=== PATIENT | female | born 1940 | race Caucasian/White ===

== ENCOUNTER 2016-09-23 09:54 | Outpatient (CLI) | payer MEDICARE, OTHER | END 2016-09-23 09:55 | disposition home or self-care (01) | DX: G47.33 Obstructive sleep apnea (adult) (pediatric) (principal) | CPT/HCPCS: 99213; G0463 ==

== ENCOUNTER 2016-12-23 10:24 | Outpatient (CLI) | payer MEDICARE, OTHER | END 2016-12-23 10:25 | disposition home or self-care (01) | LOC: SC 10:24 | PROVIDERS: ATTEND Nurse Practitioner Family | DX: G47.33 Obstructive sleep apnea (adult) (pediatric) (principal) | CPT/HCPCS: 99213; G0463; 99212 ==

== ENCOUNTER 2017-02-07 19:11 | Outpatient (CLI) | payer MEDICARE, OTHER | END 2017-02-07 19:12 | disposition home or self-care (01) | LOC: SC 19:11 | PROVIDERS: ATTEND Internal Medicine Pulmonary Disease | DX: G47.33 Obstructive sleep apnea (adult) (pediatric) (principal); R09.02 Hypoxemia | CPT/HCPCS: 95810 ==

== ENCOUNTER 2017-03-08 14:21 | Outpatient (CLI) | payer MEDICARE, OTHER | END 2017-03-08 14:22 | disposition home or self-care (01) | LOC: SC 14:21 | PROVIDERS: ATTEND Nurse Practitioner Family | DX: G47.33 Obstructive sleep apnea (adult) (pediatric) (principal); R09.02 Hypoxemia | CPT/HCPCS: 99214; G0463; 99212 ==

== ENCOUNTER 2017-04-05 13:14 | Outpatient (CLI) | payer MEDICARE, OTHER | END 2017-04-05 13:15 | disposition home or self-care (01) | LOC: SC 13:14 | PROVIDERS: ATTEND Nurse Practitioner Family | DX: G47.33 Obstructive sleep apnea (adult) (pediatric) (principal); G47.00 Insomnia, unspecified | CPT/HCPCS: 99214; G0463; 99212 ==

== ENCOUNTER 2017-05-11 11:31 | Outpatient (CLI) | payer MEDICARE, OTHER | END 2017-05-11 11:32 | disposition home or self-care (01) | LOC: DI 11:31 | PROVIDERS: ATTEND Registered Nurse | DX: I48.91 Unspecified atrial fibrillation (principal); R01.1 Cardiac murmur, unspecified; I08.1 Rheumatic disorders of both mitral and tricuspid valves | CPT/HCPCS: 93306 ==

== ENCOUNTER 2017-05-16 11:24 | Outpatient (CLI) | payer MEDICARE, OTHER | END 2017-05-16 11:25 | disposition home or self-care (01) | LOC: SC 11:24 | PROVIDERS: ATTEND Nurse Practitioner Family | DX: G47.33 Obstructive sleep apnea (adult) (pediatric) (principal) | CPT/HCPCS: 99214; G0463; 99212 ==

== ENCOUNTER 2018-04-19 10:12 | Outpatient (CLI) | payer MEDICARE, OTHER | END 2018-04-19 10:13 | disposition home or self-care (01) | LOC: SC 10:12 | PROVIDERS: ATTEND Nurse Practitioner Family | DX: G47.33 Obstructive sleep apnea (adult) (pediatric) (principal) | CPT/HCPCS: 99213; G0463; 99212 ==

== ENCOUNTER 2018-12-18 09:31 | Outpatient (CLI) | payer MEDICARE, OTHER ==
[2018-12-18 18:14] LABS: ABSOLUTE RETICS # AUTO 0.135 10^6/uL (0.020-0.110); BASOPHILS # (AUTO) 0.1 10^3/uL (0.0-0.1); BASOPHILS % (AUTO) 1.3 %; EOSINOPHILS # (AUTO) 0.2 10^3/uL (0.0-0.7); HGB - HEMOGLOBIN 11.1 g/dL (12.0-16.0); LYMPHOCYTES # (AUTO) 2.2 10^3/uL (1.5-3.5); LYMPHOCYTES % (AUTO) 39.7 %; MEAN CORPUSCULAR HEMOGLOBIN 33.7 pg (27.0-31.0); MEAN CORPUSCULAR HGB CONC 33.8 g/dL (32.0-36.0); MEAN CORPUSCULAR VOLUME 99.7 fL (81.0-99.0); MEAN PLATELET VOLUME 9.6 fL (7.9-10.8); MONOCYTES # (AUTO) 0.6 10^3/uL (0.0-1.0); MONOCYTES % (AUTO) 11.5 %; NEUTROPHILS # (AUTO) 2.4 10^3/uL (1.5-6.6); NEUTROPHILS % (AUTO) 43.1 %; PLT - PLATELET COUNT 305 10^3/uL (130-450); RED BLOOD COUNT 3.29 10^6/uL (4.20-5.40); RED CELL DISTRIBUTION WIDTH 14.2 % (12.0-15.0)
[2018-12-18 18:17] LABS: WHITE BLOOD COUNT 5.5 x10^3/uL (4.8-10.8)
[2018-12-18 19:16] LABS: ALBUMIN 4.4 g/dL (3.2-5.5); ALBUMIN/GLOBULIN RATIO 1.7 (1.0-2.2); BILIRUBIN,TOTAL 1.8 mg/dL (0.2-1.0); CALCIUM 9.7 mg/dL (8.5-10.3); CREATININE 0.4 mg/dL (0.4-1.0)
== END 2018-12-18 09:32 | disposition home or self-care (01) ==
LOC: LAB.S 09:31
PROVIDERS: ATTEND Internal Medicine Hematology & Oncology
DX: D64.9 Anemia, unspecified (principal); I10 Essential (primary) hypertension; R60.9 Edema, unspecified
CPT/HCPCS: 36415; 80053; 83010; 83615; 83880; 84443; 85025; 85044

== ENCOUNTER 2019-01-29 08:06 | Outpatient (CLI) | payer MEDICARE, OTHER | END 2019-01-29 08:07 | disposition home or self-care (01) | LOC: LAB.S 08:06 | PROVIDERS: ATTEND Physician Assistant | DX: R60.0 Localized edema (principal) | CPT/HCPCS: 36415; 83880 ==

== ENCOUNTER 2019-06-19 08:00 | Outpatient (CLI) | payer MEDICARE, OTHER ==
[2019-06-19 11:27] LABS: ALBUMIN 4.4 g/dL (3.2-5.5); ALBUMIN/GLOBULIN RATIO 1.8 (1.0-2.2); BILIRUBIN,TOTAL 1.5 mg/dL (0.2-1.0); CALCIUM 9.1 mg/dL (8.5-10.3); CREATININE 0.3 mg/dL (0.4-1.0); TOTAL PROTEIN 6.9 g/dL (6.7-8.2)
[2019-06-19 11:40] LABS: ABSOLUTE RETICS # AUTO 0.133 10^6/uL (0.020-0.110); BASOPHILS # (AUTO) 0.1 10^3/uL (0.0-0.1); BASOPHILS % (AUTO) 1.5 %; EOSINOPHILS # (AUTO) 0.2 10^3/uL (0.0-0.7); EOSINOPHILS % (AUTO) 4.3 %; HGB - HEMOGLOBIN 11.2 g/dL (12.0-16.0); LYMPHOCYTES # (AUTO) 1.9 10^3/uL (1.5-3.5); LYMPHOCYTES % (AUTO) 36.2 %; MEAN CORPUSCULAR HEMOGLOBIN 34.9 pg (27.0-31.0); MEAN CORPUSCULAR HGB CONC 35.3 g/dL (32.0-36.0); MEAN CORPUSCULAR VOLUME 98.8 fL (81.0-99.0); MEAN PLATELET VOLUME 9.5 fL (7.9-10.8); MONOCYTES # (AUTO) 0.5 10^3/uL (0.0-1.0); MONOCYTES % (AUTO) 10.1 %; NEUTROPHILS # (AUTO) 2.5 10^3/uL (1.5-6.6); NEUTROPHILS % (AUTO) 47.7 %; PLT - PLATELET COUNT 337 10^3/uL (130-450); RED BLOOD COUNT 3.21 10^6/uL (4.20-5.40); RED CELL DISTRIBUTION WIDTH 13.8 % (12.0-15.0); WHITE BLOOD COUNT 5.3 x10^3/uL (4.8-10.8)
[2019-06-19 12:04] LABS: PLATELET ESTIMATE, MANUAL NORMAL (130-450,000) (NORMAL); PLATELET MORPHOLOGY NORMAL APPEARANCE (NORMAL)
== END 2019-06-19 23:59 | disposition home or self-care (01) ==
LOC: LAB.S 08:00
PROVIDERS: ATTEND Internal Medicine Hematology & Oncology
DX: D59.1 Other autoimmune hemolytic anemias (principal); D64.9 Anemia, unspecified
CPT/HCPCS: 36415; 80053; 83010; 85025; 85045

== ENCOUNTER 2019-11-27 07:38 | Outpatient (CLI) | payer MEDICARE, OTHER ==
[2019-11-27 15:43] LABS: ALBUMIN 4.3 g/dL (3.2-5.5); ALBUMIN/GLOBULIN RATIO 1.7 (1.0-2.2); BILIRUBIN,TOTAL 1.3 mg/dL (0.2-1.0); CALCIUM 9.4 mg/dL (8.5-10.3); CREATININE 0.4 mg/dL (0.4-1.0); TOTAL PROTEIN 6.9 g/dL (6.7-8.2)
[2019-11-27 16:34] LABS: ABSOLUTE RETICS # AUTO 0.113 10^6/uL (0.020-0.110); BASOPHILS # (AUTO) 0.1 10^3/uL (0.0-0.1); BASOPHILS % (AUTO) 1.3 %; EOSINOPHILS # (AUTO) 0.2 10^3/uL (0.0-0.7); EOSINOPHILS % (AUTO) 3.8 %; HGB - HEMOGLOBIN 10.9 g/dL (12.0-16.0); LYMPHOCYTES # (AUTO) 2.3 10^3/uL (1.5-3.5); LYMPHOCYTES % (AUTO) 42.6 %; MEAN CORPUSCULAR HEMOGLOBIN 31.1 pg (27.0-31.0); MEAN CORPUSCULAR HGB CONC 33.1 g/dL (32.0-36.0); MEAN PLATELET VOLUME 10.4 fL (7.9-10.8); MONOCYTES # (AUTO) 0.6 10^3/uL (0.0-1.0); MONOCYTES % (AUTO) 10.8 %; NEUTROPHILS # (AUTO) 2.2 10^3/uL (1.5-6.6); NEUTROPHILS % (AUTO) 41.1 %; PLT - PLATELET COUNT 336 10^3/uL (130-450); RED CELL DISTRIBUTION WIDTH 14.3 % (12.0-15.0); WHITE BLOOD COUNT 5.3 x10^3/uL (4.8-10.8)
== END 2019-11-27 07:39 | disposition home or self-care (01) ==
LOC: LAB.S 07:38
PROVIDERS: ATTEND Internal Medicine Hematology & Oncology
DX: D59.1 Other autoimmune hemolytic anemias (principal)
CPT/HCPCS: 36415; 80053; 83615; 85025; 85045

== ENCOUNTER 2020-05-28 07:21 | Outpatient (CLI) | payer MEDICARE, OTHER ==
[2020-05-28 09:04] LABS: ABSOLUTE RETICS # AUTO 0.135 10^6/uL (0.020-0.110); BASOPHILS # (AUTO) 0.1 10^3/uL (0.0-0.1); BASOPHILS % (AUTO) 0.9 %; EOSINOPHILS # (AUTO) 0.2 10^3/uL (0.0-0.7); EOSINOPHILS % (AUTO) 4.3 %; LYMPHOCYTES # (AUTO) 1.9 10^3/uL (1.5-3.5); MEAN CORPUSCULAR HEMOGLOBIN 35.7 pg (27.0-31.0); MEAN CORPUSCULAR HGB CONC 36.8 g/dL (32.0-36.0); MEAN CORPUSCULAR VOLUME 97.1 fL (81.0-99.0); MEAN PLATELET VOLUME 8.8 fL (7.9-10.8); MONOCYTES # (AUTO) 0.7 10^3/uL (0.0-1.0); MONOCYTES % (AUTO) 12.2 %; NEUTROPHILS # (AUTO) 2.5 10^3/uL (1.5-6.6); NEUTROPHILS % (AUTO) 46.4 %; PLT - PLATELET COUNT 297 10^3/uL (130-450); RED BLOOD COUNT 3.08 10^6/uL (4.20-5.40); RED CELL DISTRIBUTION WIDTH 13.2 % (12.0-15.0); WHITE BLOOD COUNT 5.3 x10^3/uL (4.8-10.8)
[2020-05-28 09:17] LABS: ALBUMIN 4.2 g/dL (3.2-5.5); ALBUMIN/GLOBULIN RATIO 1.6 (1.0-2.2); BILIRUBIN,TOTAL 1.5 mg/dL (0.2-1.0); CALCIUM 9.3 mg/dL (8.5-10.3); CREATININE 0.4 mg/dL (0.4-1.0); TOTAL PROTEIN 6.9 g/dL (6.7-8.2)
== END 2020-05-28 07:22 | disposition home or self-care (01) ==
LOC: LAB.S 07:21 → LAB 07:22
PROVIDERS: ATTEND Internal Medicine Hematology & Oncology
DX: M54.30 Sciatica, unspecified side (principal); D59.10 Autoimmune hemolytic anemia, unspecified
CPT/HCPCS: 36415; 80053; 83615; 85025; 85045

== ENCOUNTER 2020-11-02 15:54 | Outpatient (CLI) | payer MEDICARE, OTHER | END 2020-11-02 15:55 | disposition EMS.NT | LOC: EMS 15:54 | DX: Z03.89 Encounter for observation for other suspected diseases and conditions ruled out (principal) ==

== ENCOUNTER 2020-11-02 17:31 | Emergency (ER) | payer MEDICARE, OTHER ==
[2020-11-02 18:09] LABS: INR 1.1 (0.8-1.2); PT - PROTHROMBIN TIME 12.2 secs (9.9-12.6)
--- NOTE | 2020-11-02 18:12 | ED Physician Documentation ---
PD HPI CHEST PAIN - Stated complaint Stated Complaint: HEART ARYTHMIA - Chief complaint Chief Complaint: Cardiac - History obtained from History obtained from: Patient - Additional information Additional information: 79-year-old woman has had intermittent trouble with palpitations. Recently had a Holter monitor showing some sort of tachyarrhythmia. She is not sure of the details and will be following up actually tomorrow with what sounds like an turning sander operator. Starting yesterday at 3 AM she has had irregular palpitations with substernal chest pressure and mild shortness of breath similar to prior episodes. Review of Systems Ten Systems: 10 systems reviewed and negative Constitutional: reports: Fatigue Cardiac: reports: Chest pain / pressure, Palpitations Respiratory: reports: Dyspnea. denies: Cough PD PAST MEDICAL HISTORY - Present Medications Home Medications: Ambulatory Orders Medication Instructions Recorded Confirmed Carvedilol 1 tab ORAL BID 01/31/18 11/02/20 Cyclosporine [Restasis] 1 drops EACHEYE DAILY 01/31/18 11/02/20 amLODIPine [Norvasc] 5 tab ORAL DAILY 01/31/18 11/02/20 lisinopriL [Lisinopril] 20 mg ORAL DAILY 01/31/18 11/02/20 Albuterol Sulfate [Proair 1 - 2 puffs IH Q4HR PRN 11/02/20 11/02/20 Digihaler] Rivaroxaban [Xarelto] 20 mg PO DAILY #30 tablet 11/02/20 - Allergies Allergies/Adverse Reactions: Allergies Allergy/AdvReac Type Severity Reaction Status Date / Time No Known Drug Allergies Allergy Verified 11/02/20 17:47 PD ED PE NORMAL - Vitals Vital signs reviewed: Yes - General General: Alert and oriented X 3, No acute distress - HEENT HEENT: PERRL, EOMI - Neck Neck: No bony TTP - Cardiac Cardiac: Other (Irregularly irregular without murmur) - Respiratory Respiratory: Clear bilaterally - Abdomen Abdomen: Non tender - Back Back: No CVA TTP, No spinal TTP - Derm Derm: Normal color, Warm and dry - Extremities Extremities: No edema, No calf tenderness / cord - Neuro Neuro: Alert and oriented X 3, Normal speech Results - Vitals Vitals: Vital Signs - 24 hr 11/02/20 11/02/20 11/02/20 17:47 17:59 18:22 Temperature 36.7 C Heart Rate 76 88 91 Respiratory 20 16 14 Rate Blood Pressure 140/50 H 170/75 H 154/68 H O2 Saturation 100 96 97 11/02/20 18:50 Temperature Heart Rate 88 Respiratory 14 Rate Blood Pressure 140/62 H O2 Saturation 96 Oxygen O2 Source Room air - EKG (time done) 1734 Rate: Rate (enter#) (95) Rhythm: Atrial fibrillation [place]: Normal QRS: Normal Ischemia: Non specific changes Computer interpretation: Agree with computer - Labs Labs: Laboratory Tests 11/02/20 11/02/20 11/02/20 17:59 17:59 17:59 WBC 6.2 RBC 3.75 L Hgb 12.5 Hct 35.5 L MCV 94.7 MCH 33.3 H MCHC 35.2 RDW 12.9 Plt Count 329 MPV 9.2 Neut # (Auto) 3.4 Lymph # (Auto) 2.0 [place] # (Auto) 0.6 Eos # (Auto) 0.2 Baso # (Auto) 0.0 Absolute Nucleated RBC 0.00 Nucleated RBC % 0.0 PT 12.2 INR 1.1 Sodium 132 L Potassium 4.0 Chloride 96 L Carbon Dioxide 29 Anion Gap 7.0 BUN 13 Creatinine 0.4 Estimated GFR (MDRD) 154 Glucose 128 H Calcium 9.4 Magnesium 2.1 Total Bilirubin 1.1 H AST 25 ALT 20 Alkaline Phosphatase 106 Troponin I High Sens Total Protein 7.0 Albumin 4.7 Globulin 2.3 Albumin/Globulin Ratio 2.0 TSH 11/02/20 11/02/20 17:59 17:59 WBC RBC Hgb Hct MCV MCH MCHC RDW Plt Count MPV Neut # (Auto) Lymph # (Auto) [place] # (Auto) Eos # (Auto) Baso # (Auto) Absolute Nucleated RBC Nucleated RBC % PT INR Sodium Potassium Chloride Carbon Dioxide Anion Gap BUN Creatinine Estimated GFR (MDRD) Glucose Calcium Magnesium Total Bilirubin AST ALT Alkaline Phosphatase Troponin I High Sens 6.9 Total Protein Albumin Globulin Albumin/Globulin Ratio TSH 1.95 PD MEDICAL DECISION MAKING - ED course ED course: 79-year-old woman has had ongoing issues with intermittent palpitations now carrying a formal diagnosis of A. fib based on EKG tonight which she had not had a formal diagnosis yet. She is already on beta-blockade and her rate is controlled. She appears well. She has no risk factors for bleeding should we decide to start anticoagulation. 79-year-old woman who presents with symptomatic atrial fibrillation. It sounds like it has been a paroxysmal problem and as such cardioversion was not offered. She is already rate controlled on her Coreg. No pertinent positive findings on labs. Departure - Departure Disposition: 01 Home, Self Care Clinical Impression: Atrial fibrillation Qualifiers: Atrial fibrillation type: paroxysmal Qualified Code(s): I48.0 - Paroxysmal atrial fibrillation Condition: Good Record reviewed to determine appropriate education?: Yes Instructions: Atrial Fibrillation Dc Prescriptions: Rivaroxaban [Xarelto] 20 mg PO DAILY #30 tablet Comments: Follow-up with the turning sander operator as scheduled tomorrow. Return for new or worsening symptoms. We are starting a blood thinner, nature of the collections director knows about this.
[2020-11-02 18:19] LABS: ALBUMIN 4.7 g/dL (3.2-5.5); BILIRUBIN,TOTAL 1.1 mg/dL (0.2-1.0); CALCIUM 9.4 mg/dL (8.5-10.3); CREATININE 0.4 mg/dL (0.4-1.0); MAGNESIUM 2.1 mg/dL (1.7-2.8)
[2020-11-02 18:39] LABS: BASOPHILS % (AUTO) 0.6 %; EOSINOPHILS # (AUTO) 0.2 10^3/uL (0.0-0.7); EOSINOPHILS % (AUTO) 2.4 %; HCT - HEMATOCRIT 35.5 % (37.0-47.0); HGB - HEMOGLOBIN 12.5 g/dL (12.0-16.0); LYMPHOCYTES % (AUTO) 32.7 %; MEAN CORPUSCULAR HEMOGLOBIN 33.3 pg (27.0-31.0); MEAN CORPUSCULAR HGB CONC 35.2 g/dL (32.0-36.0); MEAN CORPUSCULAR VOLUME 94.7 fL (81.0-99.0); MEAN PLATELET VOLUME 9.2 fL (7.9-10.8); MONOCYTES # (AUTO) 0.6 10^3/uL (0.0-1.0); MONOCYTES % (AUTO) 10.3 %; NEUTROPHILS # (AUTO) 3.4 10^3/uL (1.5-6.6); NEUTROPHILS % (AUTO) 53.8 %; PLT - PLATELET COUNT 329 10^3/uL (130-450); RED BLOOD COUNT 3.75 10^6/uL (4.20-5.40); RED CELL DISTRIBUTION WIDTH 12.9 % (12.0-15.0); WHITE BLOOD COUNT 6.2 x10^3/uL (4.8-10.8)
[2020-11-02] MEDS ORDERED: RIVAROXABAN 10 MG TABLET PO STA (18:58)
[2020-11-02 19:10] VITALS: BP 139/72
== END 2020-11-02 19:27 | disposition home or self-care (01) ==
LOC: ED 17:31
DX: I48.0 Paroxysmal atrial fibrillation (principal); R07.89 Other chest pain
CPT/HCPCS: 36415; 80053; 83735; 84443; 84484; 85025; 85610; 93005; 99284; A9270

== ENCOUNTER 2020-12-01 07:21 | Outpatient (CLI) | payer MEDICARE, OTHER ==
[2020-12-01 14:59] LABS: ABSOLUTE RETICS # AUTO 0.121 10^6/uL (0.020-0.110); BASOPHILS # (AUTO) 0.1 10^3/uL (0.0-0.1); BASOPHILS % (AUTO) 1.8 %; EOSINOPHILS # (AUTO) 0.2 10^3/uL (0.0-0.7); EOSINOPHILS % (AUTO) 4.3 %; HCT - HEMATOCRIT 32.6 % (37.0-47.0); HGB - HEMOGLOBIN 11.4 g/dL (12.0-16.0); LYMPHOCYTES # (AUTO) 1.7 10^3/uL (1.5-3.5); MEAN CORPUSCULAR HEMOGLOBIN 34.3 pg (27.0-31.0); MEAN CORPUSCULAR VOLUME 98.2 fL (81.0-99.0); MEAN PLATELET VOLUME 10.4 fL (7.9-10.8); MONOCYTES # (AUTO) 0.4 10^3/uL (0.0-1.0); MONOCYTES % (AUTO) 10.8 %; NEUTROPHILS # (AUTO) 1.6 10^3/uL (1.5-6.6); NEUTROPHILS % (AUTO) 39.8 %; PLT - PLATELET COUNT 361 10^3/uL (130-450); RED BLOOD COUNT 3.32 10^6/uL (4.20-5.40); RED CELL DISTRIBUTION WIDTH 14.3 % (12.0-15.0); RETICULOCYTE COUNT % (AUTO) 3.65 % (0.5-2.3)
[2020-12-01 15:36] LABS: ALBUMIN 4.4 g/dL (3.2-5.5); ALBUMIN/GLOBULIN RATIO 1.8 (1.0-2.2); BILIRUBIN,TOTAL 1.4 mg/dL (0.2-1.0); CALCIUM 9.3 mg/dL (8.5-10.3); CREATININE 0.4 mg/dL (0.4-1.0); POTASSIUM 4.3 mmol/L (3.5-5.0); TOTAL PROTEIN 6.9 g/dL (6.7-8.2)
== END 2020-12-01 07:22 | disposition home or self-care (01) ==
LOC: LAB.S 07:21
PROVIDERS: ATTEND Internal Medicine Hematology & Oncology
DX: D59.12 Cold autoimmune hemolytic anemia (principal)
CPT/HCPCS: 36415; 80053; 83615; 85025; 85045

== ENCOUNTER 2020-12-27 13:30 | Outpatient (CLI) | payer MEDICARE, OTHER | END 2020-12-27 13:31 | disposition home or self-care (01) | LOC: LAB 13:30 | PROVIDERS: ATTEND Internal Medicine Cardiovascular Disease | DX: Z01.812 Encounter for preprocedural laboratory examination (principal); Z20.822 Contact with and (suspected) exposure to COVID-19 ==

== ENCOUNTER 2021-02-23 11:37 | Outpatient (CLI) | payer MEDICARE, OTHER ==
--- NOTE | 2021-02-23 12:15 | SLEEP CARE CONSULTATION ---
Information from patient questionnaire entered by Chetna Garcia. I have reviewed and concur with the information entered by Chetna Garcia. This document represents the service I personally performed and the decisions made by me, Shantal Roth MD, [facility]. History of Present Illness Service Date and Time: 02/23/2021 1137 Previous diagnosis: Moderate, Obstructive Sleep Apnea-Hypopnea Syndrome AHI: 23.1 (in 2017)(51.5 in 2005) Reason for follow up: annual (last seen 04/2018) Equipment type: CPAP Equipment obtained from: [employer] Mask style: Nasal Mask brand: Respironics (Dreamwear) Prior sleep studies: Yes Year and Where: 2016 - [facility]; 2005 - [facility] Type of Sleep Study: Polysomnography HPI additional information: HPI: Ms. Arcos was diagnosed to have moderate (AHI 23.1) obstructive sleep apnea-hypopnea syndrome returned today for her annual follow up of CPAP therapy. I reviewed the past visit notes with patient. She bought her CPAP equipment from [employer] and is getting supplies from [employer]. She uses a Dreamwear nasal mask. She also has a spare mask. The compliance report was downloaded by staff and I reviewed results with patient. She uses the device nightly for an average of 7.6 hours as reflected on her compliance report. She has 100 % compliance of CPAP use more than 4 hours a night for the past 180 days. She denies dry nose or mouth or throat, facial discomfort, aerophagia, headache, nasal congestion or epistaxis. She thinks that the current pressure of 9 cmH2O seems just right. Average residual AHI is 0.5. Average large leak is 1.8 minutes. Her spouse has not noted any snore while she is using CPAP. Since she started using the CPAP device she has noticed that she is sleeping better and is more rested overall. She no longer uses her oral appliance as it was causing jaw pain. She denies drowsy driving. Her [place] Sleepiness Score is: 4 and was 6 at initial lauryn luation. CPAP Compliance Data - Data Reviewed with Patient Average duration of nightly device use: 7 hr 36 min Compliance rate %: 100 (180 days) Current pressure setting (cmH2O): 9 Humidity settin Heated hose settin Average residual AHI: 0.6 Average large leak: 1 min 38 sec Subjective Initial [place] Sleepiness Scale score: 3 (in 2016) Current [place] Sleepiness Scale score: 3 Allergies and Home Medications Drug allergies reviewed: Yes Home medication list reviewed: Yes Review of Systems Review of systems same as previous: Yes Physical Exam Height: 5 ft 3 in Weight: 130 lb Body Mass Index: 23.0 BMI Classification: Healthy weight Impression and Plan IMPRESSION: 1. Obstructive Sleep Apnea-Hypopnea Syndrome, moderate, with good treatment compliance and apnea control. She continues to feel much more rested with CPAP treatment. The current pressure setting appears effective and comfortable. Because the CPAP is now older than the useful life of 5 years and is being recalled, I will order the patient a new one and make it an autoCPAP set between 6 and 9 cmH2O. PLAN: 1. Prescription made for an autoCPAP, heated humidifier, and related supplies. * Return for follow up after one month of using the CPAP. Prescriptions: Auto CPAP Follow up with Sleep Care in: 1-2 months Visit Type: In Office Time Spent with Patient (minutes): 15 Provider Statement: I spent 100% of the Face to Face Visit with the patient with greater than 50% spent counseling the patient and coordination of care.
== END 2021-02-23 11:38 | disposition home or self-care (01) ==
LOC: SC 11:37
PROVIDERS: ATTEND Internal Medicine Pulmonary Disease
DX: G47.33 Obstructive sleep apnea (adult) (pediatric) (principal)
CPT/HCPCS: 99212; G0463

== ENCOUNTER 2021-03-20 09:34 | Outpatient (CLI) | payer MEDICARE, OTHER ==
[2021-03-20 15:05] LABS: CALCIUM 9.8 mg/dL (8.5-10.3); CREATININE 0.4 mg/dL (0.4-1.0); POTASSIUM 4.1 mmol/L (3.5-5.0)
== END 2021-03-20 09:35 | disposition home or self-care (01) ==
LOC: LAB.S 09:34
PROVIDERS: ATTEND Nurse Practitioner Acute Care
DX: I48.19 Other persistent atrial fibrillation (principal)
CPT/HCPCS: 36415; 80048; 83735

== ENCOUNTER 2021-03-30 11:04 | Outpatient (CLI) | payer MEDICARE, OTHER ==
[2021-03-30 14:47] LABS: CALCIUM 9.6 mg/dL (8.5-10.3); CREATININE 0.4 mg/dL (0.4-1.0)
== END 2021-03-30 11:05 | disposition home or self-care (01) ==
LOC: LAB.S 11:04
PROVIDERS: ATTEND Nurse Practitioner Acute Care
DX: I48.19 Other persistent atrial fibrillation (principal)
CPT/HCPCS: 36415; 80048; 83735

== ENCOUNTER 2022-03-03 12:04 | Outpatient (CLI) | payer MEDICARE, OTHER ==
--- NOTE | 2022-03-03 10:13 | SLEEP CARE CONSULTATION ---
Information from patient questionnaire entered by Cherie Smith. I have reviewed and concur with the information entered by Cherie Smith. This document represents the service I personally performed and the decisions made by me, Dariela Rubio ARNP. History of Present Illness Service Date and Time: 03/03/2022 0940 Previous diagnosis: Moderate, Obstructive Sleep Apnea-Hypopnea Syndrome AHI: 23.1 (in 2016)(51.5 in 2005) Reason for follow up: annual (LAST SEEN 03/03, NEW CPAP) Equipment type: CPAP Equipment obtained from: [employer] (getting supplies as needed) Mask style: Nasal Backup mask available: Yes (old mask) Last cushion change: 1 month Prior sleep studies: Yes Year and Where: 2016 - [facility]; 2005 - [facility] Type of Sleep Study: Polysomnography HPI additional information: MAURY BARNARD was diagnosed to have moderate, AHI 23.1, obstructive sleep apnea- hypopnea syndrome and returns via video telehealth visit today for CPAP therapy annual follow-up. Sleep Study - Results Type of Sleep Study: Polysomnography Prior sleep studies: Yes Year and Where: 2016 - [facility]; 2005 - [facility] CPAP Compliance Data - Data Reviewed with Patient Average duration of nightly device use: 7 hours, 50 minutes, 2 seconds Compliance rate %: 100 (09/03/21 to 03/01/22; 180/180 days used) Current pressure setting (cmH2O): 6-9 Average residual AHI: 4.4 Average large leak: 9 mins 59 secs Subjective Patient concerns: denies: aerophagia, mask discomfort, air blowing in eyes, mask leak noise, condensation in mask/hose, nasal congestion, dry mouth, nose, throat, epistaxis Observed to snore while using device: No Current pressure setting perceived as: comfortable On therapy, patient: reports: sleeping better, awakening more refreshed, being more awake and alert during the day, more rested overall. denies: drowsiness while driving Initial [place] Sleepiness Scale score: 3 (in 2015) Current [place] Sleepiness Scale score: 3 (03/03/22) Allergies and Home Medications Home medication list reviewed: Yes (Xarelto 20 mg; Flecainide 50 mg bid; stopped potassium, lasix) Allergy and home medication list: Allergies No Known Drug Allergies Allergy (Verified 12/04/20 10:57) Review of Systems Review of systems same as previous: No (Afib) Physical Exam Vital signs obtained and entered by: VIA PHONE Height: 5 ft 3 in Weight: 124 lb (pt reported) Body Mass Index: 21.9 BMI Classification: Normal Impression and Plan 1. Obstructive Sleep Apnea-Hypopnea Syndrome, moderate, with good treatment compliance and good apnea control. On CPAP therapy, the patient has better sleep quality and is more rested overall. Patient has DreamStation that was last updated in 2017. She states she should be eligible for a new machine. She states she has received a DreamStation 2 but wants to keep it as a backup and get a new ResMed CPAP machine to use as her main machine. The patients CPAP is over 5 years old and of reasonable use. Thus, the CPAP will be updated. A DWO prescription will be made. Compliance guidelines for new device and follow up discussed. Patient's apnea severity and rationale for treatment to reduce apnea, improve sleep quality and reduce cardiovascular and cerebrovascular events was reviewed. I also reviewed the benefit of consistent device use of CPAP for hypertension. * Continue auto CPAP pressure at 6-9 cmH2O * Update machine * Update supplies * Notify me if snoring with mask or feeling that the pressure is too much or too little * Maintain a healthy weight * Call this office if any problems using CPAP * Return for follow up one month after obtains new device, or sooner if concerns arise Counseling Topics: Spare mask, Weight loss health impact Prescriptions: Auto CPAP, Device supplies Visit Type: Telehealth Video ([email or web address]) Video Type: Doximity Patient Location: Home Location of Provider: Office Patient agrees and consents to this telehealth visit type: Yes Patient agrees to have their insurance billed: Yes Time Spent with Patient (minutes): 24 Provider Statement: I spent 100% of the Telehealth Video Call with the patient with greater than 50% spent counseling the patient and coordination of care.
== END 2022-03-03 12:05 | disposition home or self-care (01) ==
LOC: SC 12:04
PROVIDERS: ATTEND Nurse Practitioner Family
DX: G47.33 Obstructive sleep apnea (adult) (pediatric) (principal)

== ENCOUNTER 2022-05-04 13:25 | Outpatient (CLI) | payer MEDICARE, OTHER ==
[2022-05-04 11:16] VITALS: BP 130/60
--- NOTE | 2022-05-04 11:16 | SLEEP CARE CONSULTATION ---
Information from patient questionnaire entered by Alessandra Jackson. I have reviewed and concur with the information entered by Alessandra Jackson. This document represents the service I personally performed and the decisions made by me, Dariela Rubio ARNP. History of Present Illness Service Date and Time: 05/04/2022 1100 Previous diagnosis: Moderate, Obstructive Sleep Apnea-Hypopnea Syndrome AHI: 23.1 (in 2016)(51.5 in 2005) Reason for follow up: first compliance (SET UP 03/15/2022) Equipment type: CPAP (RESMED Airsense 11) Equipment obtained from: [employer] (getting supplies as needed) Mask style: Nasal Mask brand: Respironics (Dreamwear) Backup mask available: Yes (old mask) Last cushion change: last month Prior sleep studies: Yes Year and Where: 2016 - [facility]; 2005 - [facility] Type of Sleep Study: Polysomnography HPI additional information: MAURY BARNARD was diagnosed to have moderate, AHI 23.1, obstructive sleep apnea- hypopnea syndrome and returns via video telehealth visit today for CPAP therapy first compliance after updating device follow-up. Sleep Study - Results Type of Sleep Study: Polysomnography Prior sleep studies: Yes Year and Where: 2016 - [facility]; 2005 - [facility] CPAP Compliance Data - Data Reviewed with Patient Average duration of nightly device use: 8 hours 32 minutes Compliance rate %: 100 (30/30 days used) Current pressure setting (cmH2O): 6-9 Average residual AHI: 0.5 Central apnea: 0.1 Obstructive apnea: 0.1 Average large leak: 7.0 lpm Subjective Patient concerns: denies: aerophagia, mask discomfort, air blowing in eyes, mask leak noise, condensation in mask/hose, nasal congestion, dry mouth, nose, throat, epistaxis Observed to snore while using device: No Current pressure setting perceived as: comfortable On therapy, patient: reports: sleeping better, awakening more refreshed, being more awake and alert during the day, more rested overall. denies: drowsiness while driving Initial [place] Sleepiness Scale score: 3 (in 2016) Current [place] Sleepiness Scale score: 3 (05/04/2022) Allergies and Home Medications Drug allergies reviewed: Yes (NKDA) Home medication list reviewed: Yes (no changes) Review of Systems Review of systems same as previous: Yes (no changes) Physical Exam Vital signs obtained and entered by: VIA PHONE Blood Pressure: 130/60 (PER PT) Height: 5 ft 3 in (PER PT) Weight: 123 lb (PER PT) Body Mass Index: 21.7 BMI Classification: Normal Impression and Plan 1. Obstructive Sleep Apnea-Hypopnea Syndrome, moderate, with good treatment compliance and good apnea control. On CPAP therapy, the patient has better sleep quality and is more rested overall. Patient really likes her new CPAP device the Airsense 11 by [employer]. Patient has significant improvement of their sleep apnea and are satisfied with current CPAP therapy. Patient denies problems with oral dryness, nasal congestion, epistaxis, skin irritation or aerophagia. Patient's apnea severity and rationale for treatment to reduce apnea, improve sleep quality and reduce cardiovascular and cerebrovascular events was reviewed. I also reviewed the benefit of consistent device use of CPAP for hypertension. * Continue auto CPAP pressure at 6-9 cmH2O * Notify me if snoring with mask or feeling that the pressure is too much or too little * Call this office if any problems using CPAP * Return for follow up in 1 year, or sooner if concerns arise Counseling Topics: Spare mask Visit Type: Telehealth Phone Video Type: Doximity Patient Location: Home Location of Provider: Office Patient agrees and consents to this telehealth visit type: Yes Patient agrees to have their insurance billed: Yes Time Spent with Patient (minutes): 14 Provider Statement: I spent 100% of the Telehealth Phone Call with the patient with greater than 50% spent counseling the patient and coordination of care.
== END 2022-05-04 13:26 | disposition home or self-care (01) ==
LOC: SC 13:25
PROVIDERS: ATTEND Nurse Practitioner Family
DX: G47.33 Obstructive sleep apnea (adult) (pediatric) (principal)

== ENCOUNTER 2022-08-25 11:19 | Emergency (ER) | payer MEDICARE, OTHER ==
--- NOTE | 2022-08-25 11:57 | XRAY Report ---
PROCEDURE: Chest 1 View X-Ray INDICATIONS: SOA TECHNIQUE: One view of the chest was acquired. COMPARISON: Chest CT report, 06/15/2017. FINDINGS: There is mild rotation. Surgical changes and devices: Surgical clips in the right breast and axilla. Surgical clips in the l eft axilla. A metallic density projecting to the C7-T1 area. Lungs and pleura: Left basilar opacity may be infiltrate. Hyperinflation consistent with COPD. Bronch iectasis in the lower lobes. No pleural effusions or pneumothorax. Mediastinum: Mediastinal contours appear normal. Heart size is mildly increased. Bones and chest wall: No suspicious bony lesions. Overlying soft tissues appear unremarkable. IMPRESSION: 1. Suspect left basilar infiltrate. 2. COPD. 3. Bilateral bronchiectasis in lower lobes. Reviewed by: Terry Snell MD on 08/25/2022 10:56 AM PITER Approved by: Terry Snell MD on 08/25/2022 10:56 AM PITER Station ID: [id number]
[2022-08-25 12:39] LABS: B. PARAPERTUSSIS- RESP PCR PAN NOT DETECTED; B. PERTUSSIS- RESP PCR PANEL NOT DETECTED; C. PNEUMONIAE- RESP PCR PANEL NOT DETECTED; CORONAVIRUS 229E-RESP PCR NOT DETECTED; CORONAVIRUS HKU1-RESP PCR NOT DETECTED; CORONAVIRUS NL63-RESP PCR NOT DETECTED; CORONAVIRUS OC43-RESP PCR NOT DETECTED; HUMAN METAPNEUMOVIRUS NOT DETECTED; INFLUENZA A- RESP PCR PANEL NOT DETECTED; INFLUENZA B - RESP PCR PANEL NOT DETECTED; M. PNEUMONIAE- RESP PCR PANEL NOT DETECTED; PARAINFLUENZA VIRUS 1 NOT DETECTED; PARAINFLUENZA VIRUS 2 NOT DETECTED; PARAINFLUENZA VIRUS 3 NOT DETECTED; PARAINFLUENZA VIRUS 4 NOT DETECTED; RHINOVIRUS/ENTEROVIRUS NOT DETECTED; RSV- RESP PCR PANEL NOT DETECTED; SARS-CoV-2 -RESP PCR PANEL NOT DETECTED
[2022-08-25] MEDS ORDERED: SODIUM CHLORIDE 0.9% 1,000 ML IV STA (13:27)
[2022-08-25] MEDS ORDERED: IPRATROPIUM/ALBUTEROL 3 ML NEB INH STA (13:46)
--- NOTE | 2022-08-25 13:49 | ED Physician Documentation ---
History of Present Illness - Stated complaint Stated Complaint: SOA - Chief complaint Chief Complaint: General - History obtained from History obtained from: Patient, Family - History of Present Illness Pain level max: 0 Pain level now: 0 - Additonal information Additional information: 81-year-old female presents to the emergency department with congestion for the past several days. No fevers. She states that she has generalized weakness. She felt lightheaded and dizzy earlier today. Currently feeling better. Initial triage blood pressure was low, but there apparently is an issue with the machine in triage that engineering is fixing. She was brought back to a room and blood pressure was 137/60 Patient states that she has a history of anemia and hyponatremia. She does not know her normal sodium but states it is "a couple points low". Patient is also coughing. The cough is mostly dry. No nausea or vomiting. No abdominal pain. No headache. No neurological changes. No altered mental status. No seizures. No chest pain. Review of Systems Constitutional: denies: Fever, Chills GI: denies: Vomiting, Diarrhea Skin: denies: Rash Neurologic: denies: Seizure, Confused, Head injury PD PAST MEDICAL HISTORY - Past Medical History Cardiovascular: Hypertension, Arrhythmia Respiratory: Asthma, Sleep apnea, CPAP use Neuro: None Endocrine/Autoimmune: None GI: None GEOSPATIAL ANALYST: Fibroids, Breast cancer : None HEENT: Other Psych: None Musculoskeletal: None Derm: Rosacea - Past Surgical History Past Surgical History: Yes /GEOSPATIAL ANALYST: Hysterectomy, Mastectomy HEENT: Tonsil/Adenoidectomy - Present Medications Home Medications: Ambulatory Orders Medication Instructions Recorded Confirmed Carvedilol 1 tab ORAL BID 01/31/18 05/04/22 cycloSPORINE [Restasis] 1 drops EACHEYE DAILY 01/31/18 05/04/22 lisinopriL [Lisinopril] 20 mg ORAL DAILY 01/31/18 05/04/22 Albuterol Sulfate [Proair 1 - 2 puffs IH Q4HR PRN 11/02/20 05/04/22 Digihaler] Rivaroxaban [Xarelto] 20 mg PO DAILY #30 tablet 11/02/20 05/04/22 Flecainide [Tambocar] 1 tablet PO BID 03/03/22 05/04/22 Rivaroxaban [Xarelto] 1 tablet PO DAILY PM 03/03/22 05/04/22 Amox/Clav 875/125 [Augmentin] 1 tab PO Q12H #20 tablet 08/25/22 Doxycycline Monohydrate 100 mg PO BID #20 cap 08/25/22 - Allergies Allergies/Adverse Reactions: Allergies Allergy/AdvReac Type Severity Reaction Status Date / Time No Known Drug Allergies Allergy Verified 08/25/22 11:31 - Social History Does the pt smoke?: No Smoking Status: Never smoker Does the pt drink ETOH?: No Does the pt have substance abuse?: No - Immunizations Immunizations are current?: Yes PD ED PE NORMAL - Vitals Vital signs reviewed: Yes - General General: Alert and oriented X 3, No acute distress, Well developed/nourished - HEENT HEENT: PERRL, Moist mucous membranes - Neck Neck: Supple, no meningeal sign - Cardiac Cardiac: RRR, Strong equal pulses, Other (3 out of 6 systolic murmur) - Respiratory Respiratory: No respiratory distress, Other (Mild wheezing bilaterally) - Abdomen Abdomen: Soft, Non tender, Non distended - Back Back: No CVA TTP, No spinal TTP - Derm Derm: Warm and dry, No rash - Extremities Extremities: No edema - Neuro Neuro: Alert and oriented X 3, 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, No motor deficit, No sensory deficit, Normal speech Eye Opening: Spontaneous Motor: Obeys Commands Verbal: Oriented GCS Score: 15 - Psych Psych: Normal mood, Normal affect Results - Vitals Vitals: Vital Signs - 24 hr 08/25/22 08/25/22 08/25/22 11:28 13:30 14:00 Temperature 37.1 C Heart Rate 59 L 67 64 Respiratory 18 23 20 Rate Blood Pressure 80/57 L 137/44 H 129/48 L O2 Saturation 95 97 96 08/25/22 08/25/22 14:15 15:15 Temperature Heart Rate 61 65 Respiratory 16 28 H Rate Blood Pressure 135/47 H O2 Saturation 97 Oxygen O2 Source Room air - Labs Labs: Laboratory Tests 08/25/22 08/25/22 08/25/22 11:30 11:36 13:40 WBC 10.9 H RBC 2.60 L Hgb 8.9 L Hct 24.4 L MCV 93.8 MCH 34.2 H MCHC 36.5 H RDW 13.4 Plt Count 285 MPV 9.2 Neut # (Auto) 7.7 H Lymph # (Auto) 1.8 [place] # (Auto) 1.3 H Eos # (Auto) 0.0 Baso # (Auto) 0.0 Absolute Nucleated RBC 0.00 Nucleated RBC % 0.0 Sodium Potassium Chloride Carbon Dioxide Anion Gap BUN Creatinine Estimated GFR (MDRD) Glucose POC Whole Bld Glucose 169 H Calcium Total Bilirubin AST ALT Alkaline Phosphatase Total Protein Albumin Globulin Albumin/Globulin Ratio Nasal Adenovirus (PCR) NOT DETECTED Nasal B. parapertussis DNA (PCR) NOT DETECTED Nasal Coronavir 229E PCR NOT DETECTED Nasal Coronavir HKU1 PCR NOT DETECTED Nasal Coronavir NL63 PCR NOT DETECTED Nasal Coronavir OC43 PCR NOT DETECTED Nasal Enterovir/Rhinovir PCR NOT DETECTED Nasal Influenza B PCR NOT DETECTED Nasal Influenza A PCR NOT DETECTED Nasal Parainfluen 1 PCR NOT DETECTED Nasal Parainfluen 2 PCR NOT DETECTED Nasal Parainfluen 3 PCR NOT DETECTED Nasal Parainfluen 4 PCR NOT DETECTED Nasal RSV (PCR) NOT DETECTED Nasal B.pertussis DNA PCR NOT DETECTED Nasal C.pneumoniae (PCR) NOT DETECTED Raymundo Human Metapneumo PCR NOT DETECTED Nasal M.pneumoniae (PCR) NOT DETECTED Nasal SARS-CoV-2 (PCR) NOT DETECTED 08/25/22 13:40 WBC RBC Hgb Hct MCV MCH MCHC RDW Plt Count MPV Neut # (Auto) Lymph # (Auto) [place] # (Auto) Eos # (Auto) Baso # (Auto) Absolute Nucleated RBC Nucleated RBC % Sodium 125 L Potassium 3.9 Chloride 86 L Carbon Dioxide 30 Anion Gap 9.0 BUN 10 Creatinine 0.3 L Estimated GFR (MDRD) 213 Glucose 152 H POC Whole Bld Glucose Calcium 9.0 Total Bilirubin 2.9 H AST 32 ALT 32 Alkaline Phosphatase 87 Total Protein 6.9 Albumin 4.0 Globulin 2.9 Albumin/Globulin Ratio 1.4 Nasal Adenovirus (PCR) Nasal B. parapertussis DNA (PCR) Nasal Coronavir 229E PCR Nasal Coronavir HKU1 PCR Nasal Coronavir NL63 PCR Nasal Coronavir OC43 PCR Nasal Enterovir/Rhinovir PCR Nasal Influenza B PCR Nasal Influenza A PCR Nasal Parainfluen 1 PCR Nasal Parainfluen 2 PCR Nasal Parainfluen 3 PCR Nasal Parainfluen 4 PCR Nasal RSV (PCR) Nasal B.pertussis DNA PCR Nasal C.pneumoniae (PCR) Raymundo Human Metapneumo PCR Nasal M.pneumoniae (PCR) Nasal SARS-CoV-2 (PCR) - Rads (name of study) Chest x-ray Relevant Findings:: Final report received, See rad report PD Medical Decision Making - ED course Complexity details: reviewed results, re-evaluated patient, considered differential, d/w patient ED course: 81-year-old female with cough and weakness. Given IV fluids. She was also given a nebulizer treatment. Her CBC reveals a mild leukocytosis at 10.9, hemoglobin of 8.9 consistent with her history of anemia. Her baseline hemoglobin appears to be around 11 last year, she states that has been down to 10 and 9 recently and is being monitored by her doctor. Platelets are normal. Chemistry is significant for sodium of 125 and chloride of 86. Her last sodium here was 128. She does not have any neurological symptoms. Her respiratory PCR is negative. Patient was given Augmentin and doxycycline orally for pneumonia. She will recheck her hemoglobin and sodium in 3 days with her doctor. She will return if she worsens. No hypoxia. No respiratory distress. Patient counseled regarding signs and symptoms for which I believe and urgent re-evaluation would be necessary. Patient with good understanding of and agreement to plan and is comfortable going home at this time This document was made in part using voice recognition software. While efforts are made to proofread this document, sound alike and grammatical errors may occur. Departure - Departure Disposition: 01 Home, Self Care Clinical Impression: Hyponatremia Pneumonia Qualifiers: Pneumonia type: due to unspecified organism Laterality: left Lung location: lower lobe of lung Qualified Code(s): J18.9 - Pneumonia, unspecified organism Anemia Qualifiers: Anemia type: unspecified type Qualified Code(s): D64.9 - Anemia, unspecified Condition: Good Instructions: ED Pneumonia Adult Follow-Up: Dayanara Bowens ARNP [Primary Care Provider] - Within 3 Days Prescriptions: Amox/Clav 875/125 [Augmentin] 1 tab PO Q12H #20 tablet Doxycycline Monohydrate 100 mg PO BID #20 cap Comments: Your prescriptions were sent to [facility] in [place]. Please take all antibiotics until gone. Please return if you worsen. Please follow-up with your doctor in 3 days to have your sodium levels rechecked. Please return sooner if you worsen. Your hemoglobin is also down to 8.9 today, you usually closer to 10. This should be rechecked in 3 days with your doctor as well. Discharge Date/Time: 08/25/22 15:31
[2022-08-25 13:55] LABS: BASOPHILS % (AUTO) 0.3 %; EOSINOPHILS % (AUTO) 0.2 %; HCT - HEMATOCRIT 24.4 % (37.0-47.0); HGB - HEMOGLOBIN 8.9 g/dL (12.0-16.0); LYMPHOCYTES # (AUTO) 1.8 10^3/uL (1.5-3.5); LYMPHOCYTES % (AUTO) 16.8 %; MEAN CORPUSCULAR HEMOGLOBIN 34.2 pg (27.0-31.0); MEAN CORPUSCULAR HGB CONC 36.5 g/dL (32.0-36.0); MEAN CORPUSCULAR VOLUME 93.8 fL (81.0-99.0); MEAN PLATELET VOLUME 9.2 fL (7.9-10.8); MONOCYTES # (AUTO) 1.3 10^3/uL (0.0-1.0); MONOCYTES % (AUTO) 11.6 %; NEUTROPHILS # (AUTO) 7.7 10^3/uL (1.5-6.6); NEUTROPHILS % (AUTO) 70.5 %; PLT - PLATELET COUNT 285 10^3/uL (130-450); RED CELL DISTRIBUTION WIDTH 13.4 % (12.0-15.0); WHITE BLOOD COUNT 10.9 x10^3/uL (4.8-10.8)
[2022-08-25 14:04] LABS: ALBUMIN/GLOBULIN RATIO 1.4 (1.0-2.2); BILIRUBIN,TOTAL 2.9 mg/dL (0.2-1.0); CREATININE 0.3 mg/dL (0.4-1.0); POTASSIUM 3.9 mmol/L (3.5-5.0); TOTAL PROTEIN 6.9 g/dL (6.7-8.2)
[2022-08-25] MEDS ORDERED: DOXYCYCLINE 100 MG TABLET PO STA (15:01)
[2022-08-25] MEDS ORDERED: AMOX/CLAV 875 MG/125 MG TABLET PO STA (15:01)
[2022-08-25 15:16] VITALS: BP 135/47
== END 2022-08-25 15:31 | disposition home or self-care (01) ==
LOC: ED 11:19
DX: J18.9 Pneumonia, unspecified organism (principal); E87.1 Hypo-osmolality and hyponatremia; Z20.822 Contact with and (suspected) exposure to COVID-19; Z79.899 Other long term (current) drug therapy; Z79.01 Long term (current) use of anticoagulants
CPT/HCPCS: 36415; 71045; 80053; 85025; 87633; 94640; 99284; A9270

== ENCOUNTER 2022-09-04 11:05 | Outpatient (CLI) | payer MEDICARE, OTHER ==
[2022-09-04 12:18] LABS: ABSOLUTE RETICS # AUTO 0.171 10^6/uL (0.020-0.110); BASOPHILS # (AUTO) 0.1 10^3/uL (0.0-0.1); BASOPHILS % (AUTO) 1.2 %; EOSINOPHILS # (AUTO) 0.2 10^3/uL (0.0-0.7); HGB - HEMOGLOBIN 10.1 g/dL (12.0-16.0); LYMPHOCYTES # (AUTO) 3.6 10^3/uL (1.5-3.5); LYMPHOCYTES % (AUTO) 46.3 %; MEAN PLATELET VOLUME 8.5 fL (7.9-10.8); MONOCYTES # (AUTO) 0.8 10^3/uL (0.0-1.0); MONOCYTES % (AUTO) 10.5 %; NEUTROPHILS % (AUTO) 38.5 %; PLT - PLATELET COUNT 413 10^3/uL (130-450); RED CELL DISTRIBUTION WIDTH 13.9 % (12.0-15.0); RETICULOCYTE COUNT % (AUTO) 7.42 % (0.5-2.3); WHITE BLOOD COUNT 7.8 x10^3/uL (4.8-10.8)
[2022-09-04 12:29] LABS: ALBUMIN 4.1 g/dL (3.2-5.5); ALBUMIN/GLOBULIN RATIO 1.5 (1.0-2.2); BILIRUBIN,TOTAL 1.7 mg/dL (0.2-1.0); CALCIUM 9.3 mg/dL (8.5-10.3); CREATININE 0.4 mg/dL (0.4-1.0); POTASSIUM 4.5 mmol/L (3.5-5.0); TOTAL PROTEIN 6.9 g/dL (6.7-8.2)
[2022-09-05 07:30] LABS: MEAN CORPUSCULAR HEMOGLOBIN 35.8 pg (27.0-31.0); MEAN CORPUSCULAR HGB CONC 35.2 g/dL (32.0-36.0); MEAN CORPUSCULAR VOLUME 101.8 fL (81.0-99.0); RED BLOOD COUNT 2.85 10^6/uL (4.20-5.40)
== END 2022-09-04 11:06 | disposition home or self-care (01) ==
LOC: LAB 11:05
PROVIDERS: ATTEND Registered Nurse
DX: D59.12 Cold autoimmune hemolytic anemia (principal); E87.1 Hypo-osmolality and hyponatremia
CPT/HCPCS: 36415; 80053; 85025; 85045

== ENCOUNTER 2022-09-21 15:23 | Outpatient (CLI) | payer MEDICARE, OTHER ==
--- NOTE | 2022-09-21 19:59 | XRAY Report ---
PROCEDURE: Chest 2 View X-Ray INDICATIONS: PNEUMONIA TECHNIQUE: 2 views of the chest were acquired. COMPARISON: Chest radiographs 08/25/2022. FINDINGS: Surgical changes and devices: Surgical clips are seen in the right and left chest. Bilateral breast implants. Lungs and pleura: No pleural effusions or pneumothorax. Lungs are clear. Mediastinum: Mediastinal contours appear normal. Heart size is normal. Bones and chest wall: Probable pectus excavatum. No suspicious bony lesions. Overlying soft tissues appear unremarkable. IMPRESSION: No acute pulmonary opacity. Previously seen left basilar opacities may have resolved or been artifact ual on the prior exam. Reviewed by: Isaiah Nelson MD on 09/21/2022 7:58 PM PDT Approved by: Isaiah Nelson MD on 09/21/2022 7:58 PM PDT Station ID: [id number]
== END 2022-09-21 15:24 | disposition home or self-care (01) ==
LOC: DI.S 15:23
PROVIDERS: ATTEND Registered Nurse
DX: J18.9 Pneumonia, unspecified organism (principal)

== ENCOUNTER 2023-05-12 11:40 | Outpatient (CLI) | payer MEDICARE, OTHER ==
--- NOTE | 2023-05-12 10:39 | SLEEP CARE CONSULTATION ---
Information from patient questionnaire entered by Alessandra Jackson. I have reviewed and concur with the information entered by Alessandra Jackson. This document represents the service I personally performed and the decisions made by me, Dariela Rubio ARNP. History of Present Illness Service Date and Time: 05/12/2023 1020 Previous diagnosis: Moderate, Obstructive Sleep Apnea-Hypopnea Syndrome AHI: 23.1 (in 2016)(51.5 in 2005) Reason for follow up: annual (LAST SEEN 04/2022) Equipment type: CPAP (RESMED Airsense 11; s/u 03/2022) Equipment obtained from: [employer] (getting supplies as needed) Mask style: Nasal Mask brand: Respironics (Dreamwear) Backup mask available: Yes Last cushion change: 1 month Prior sleep studies: Yes Year and Where: 2016 - [facility]; 2005 - [facility] Type of Sleep Study: Polysomnography HPI additional information: MAURY BARNARD was diagnosed to have moderate, AHI 23.1, obstructive sleep apnea- hypopnea syndrome and returns via telephone visit today for CPAP therapy annual follow-up. Sleep Study - Results Type of Sleep Study: Polysomnography Prior sleep studies: Yes [facility] and [facility]; 2005 - [facility] CPAP Compliance Data - Data Reviewed with Patient Average duration of nightly device use: 8 HRS 21 MINS Compliance rate %: 100 (05/10/2022-05/09/2023; 365/365 days used) Current pressure setting (cmH2O): 6-9 Average residual AHI: 0.6 Central apnea: 0.1 Obstructive apnea: 0.1 Hypopnea: 0.4 Average large leak: 5.1 L/min Subjective Patient concerns: denies: aerophagia, mask discomfort, air blowing in eyes, mask leak noise, condensation in mask/hose, nasal congestion, dry mouth, nose, throat, epistaxis Observed to snore while using device: No Current pressure setting perceived as: comfortable On therapy, patient: reports: sleeping better, awakening more refreshed, being more awake and alert during the day, more rested overall. denies: drowsiness while driving Initial [place] Sleepiness Scale score: 3 (in 2016) Current [place] Sleepiness Scale score: 5 Allergies and Home Medications Known drug allergies: No Drug allergies reviewed: Yes Home medication list reviewed: Yes (no changes) Allergy and home medication list: Allergies No Known Drug Allergies Allergy (Verified 05/11/23 09:25) Review of Systems Review of systems same as previous: Yes (no changes) Physical Exam Vital signs obtained and entered by: DARIELA CLIFTON Blood Pressure: 130/60 (per pt) Height: 5 ft 3 in Weight: 120 lb (per pt) Body Mass Index: 21.2 BMI Classification: Normal Impression and Plan 1. Obstructive Sleep Apnea-Hypopnea Syndrome, moderate, with good treatment compliance and good apnea control. On CPAP therapy, the patient has better sleep quality and is more rested overall. Patient has significant improvement of their sleep apnea and is satisfied with current CPAP therapy. Patient denies problems with oral dryness, nasal congestion, epistaxis, skin irritation or aerophagia. Patient's apnea severity and rationale for treatment to reduce apnea, improve sleep quality and reduce cardiovascular and cerebrovascular events was reviewed. I also reviewed the benefit of consistent device use of CPAP for hypertension. * Continue auto CPAP pressure at 6-9 cmH2O * Update supply prescription * Notify me if snoring with mask or feeling that the pressure is too much or too little * Attempt to lose weight * Call this office if any problems using CPAP * Return for follow up in 12 months, or sooner if concerns arise Counseling Topics: Spare mask Prescriptions: Device supplies Follow up with Sleep Care in: 1 year Visit Type: Telehealth Phone Video Type: Doxalexity Patient Location: Home Other Participants: Spouse/Significant Other Location of Provider: Office Patient agrees and consents to this telehealth visit type: Yes Patient agrees to have their insurance billed: Yes Time Spent with Patient (minutes): 10 Provider Statement: I spent 100% of the Telehealth Phone Call with the patient with greater than 50% spent counseling the patient and coordination of care.
[2023-05-12 10:47] VITALS: BP 130/60
== END 2023-05-12 11:41 | disposition home or self-care (01) ==
LOC: SC 11:40
PROVIDERS: ATTEND Nurse Practitioner Family
DX: G47.33 Obstructive sleep apnea (adult) (pediatric) (principal)
CPT/HCPCS: 99442

== ENCOUNTER 2023-05-18 16:21 | Outpatient (CLI) | payer MEDICARE, OTHER ==
--- NOTE | 2023-05-18 19:34 | XRAY Report ---
PROCEDURE: Chest 2 View X-Ray INDICATIONS: COUGH TECHNIQUE: 2 views of the chest were acquired. COMPARISON: Chest radiograph on September 21, 2022 and August 25, 2022. FINDINGS: Surgical changes and devices: None. Lungs and pleura: No pleural effusions or pneumothorax. Left lower lobe patchy consolidation. Hypere xpansion of the lungs with flattening of the diaphragms suggestive of obstructive pulmonary disease. Mediastinum: Mediastinal contours appear normal. Heart size is normal. Aortic arch is calcified, in dicating atherosclerosis. Bones and chest wall: No suspicious bony lesions. Overlying soft tissues appear unremarkable. Surgi karthik clips in the right breast and left axilla. Breast implant. IMPRESSION: Left lower lobe patchy consolidation which may represent atelectasis, aspiration and/or pneumonia. Recommend short interval radiographic follow-up in 6-8 weeks to rule out a centrally obstructive proc ess. Reviewed by: Chad Mackay MD on 05/18/2023 7:33 PM PST Approved by: Chad Mackay MD on 05/18/2023 7:33 PM PST Station ID: [id number]
== END 2023-05-18 16:22 | disposition home or self-care (01) ==
LOC: DI.S 16:21
PROVIDERS: ATTEND Physician Assistant
DX: R05.9 Cough, unspecified (principal); R91.8 Other nonspecific abnormal finding of lung field